=== PATIENT | male | born 1980 ===

== ENCOUNTER 2017-02-21 10:05 | Outpatient (CLI) | payer OTHER ==
--- NOTE | 2017-02-21 11:00 | XRay Report ---
Right knee: Standing views demonstrates normal alignment of the knee and good preservation of the joint spaces. The articular surfaces are smooth. Small periarticular spurs are identified involving the medial joint compartment. The bones are well-mineralized. No swelling and no effusion. Impressions: Mild degenerative medial compartment changes.
== END 2017-02-21 10:06 | disposition home or self-care (01) ==
LOC: SPVIMAG 10:05
DX: M17.12 Unilateral primary osteoarthritis, left knee (principal)